=== PATIENT | female | born 1980 | race Caucasian/White ===

== ENCOUNTER 2018-01-29 06:01 | Inpatient (IN) | payer OTHER ==
[~2018-01-29] VITALS: Ht 154.9 cm; Wt 71.2 kg
[2018-01-29] MEDS ORDERED: SYNTHROID88 MCG PO (07:40)
[2018-01-29] MEDS ORDERED: PRENATAL TABLE1 EACH PO (07:40)
== END 2018-01-31 13:08 | disposition home or self-care (01) | DRG 775 ==
LOC: OB/GYN 06:01 → LDR 06:01 → OB/GYN 15:13
PROC: 10E0XZZ Delivery of Products of Conception, External Approach (ICD-10-PCS; principal; 2018-01-29)
PROC: 0HQ9XZZ Repair Perineum Skin, External Approach (ICD-10-PCS; 2018-01-29)
PROC: 10907ZC Drainage of Amniotic Fluid, Therapeutic from Products of Conception, Via Natural or Artificial Opening (ICD-10-PCS; 2018-01-29)
PROC: 3E0P7VZ Introduction of Hormone into Female Reproductive, Via Natural or Artificial Opening (ICD-10-PCS; 2018-01-29)
PROC: 3E033VJ Introduction of Other Hormone into Peripheral Vein, Percutaneous Approach (ICD-10-PCS; 2018-01-29)
PROC: 4A1HXCZ Monitoring of Products of Conception, Cardiac Rate, External Approach (ICD-10-PCS; 2018-01-29)
DX: O70.0 First degree perineal laceration during delivery (principal); O99.824 Streptococcus B carrier state complicating childbirth; O99.284 Endocrine, nutritional and metabolic diseases complicating childbirth; E03.8 Other specified hypothyroidism; Z3A.38 38 weeks gestation of pregnancy; Z37.0 Single live birth